=== PATIENT | male | born 1995 | race Caucasian/White ===

== ENCOUNTER 2018-06-01 10:26 | Emergency (ER) | payer OTHER, MEDICAID, SELFPAY ==
[2018-06-01 10:28] VITALS: BP 115/71; PULSE 93; RESP 17; TEMP 37.2; O2SAT 99; BMI 21.3
--- NOTE | 2018-06-01 10:44 | ED.VISSUMM ---
- ER Visit Summary Date of Service: 06/01/18 Chief Complaint: Right hand laceration History of Present Illness: The patient is a 22 M who cut his right hand on May 30 while working on a car. He presents 48 hours later. 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 He is not sure of his last tetanus update. He is right-hand dominant. He has had no weakness in the right hand. Physical Examination: Vital signs are unremarkable. Physical exam is significant for right upper extremity which reveals a 2 similar superficial laceration of the posterior right hand, over the mid fifth MCP joint. There is no sign of cellulitis or infection. There is no bleeding. He has full range of motion distally with normal strength and sensation. Test Results: [] Emergency Department Course and Treatment: I discussed with the patient that this far out from the injury it is much more likely to get infected if we close it. Will be cleansed and dressed. He will be given Keflex and tetanus update will be provided. Treatment Plan: [] Disposition: Discharge Impression: Right hand laceration, old-not sutured This note was generated with [employer] dictation software. It may contain incorrect words, spelling, and punctuation that were not noted in review of the chart prior to signing ED Disposition - Plan for ED Patient: Chief Complaint: Laceration Referrals: Care Physician,No Primary [Primary Care Provider] -
--- NOTE | 2018-06-01 10:45 | ED.DEP ---
ED Disposition - Plan for ED Patient: Disposition: Home or Assisted Living Chief Complaint: Laceration Instructions: ED Laceration Old Not Sutr Prescriptions: Cephalexin [Keflex] 500 mg PO Q6 #40 capsule Referrals: Hyacinth Cano MD [STAFF PHYSICIAN] - As Needed
[2018-06-01] MEDS: Cephalexin 250 MG Capsule 500 MG PO (11:19)
[2018-06-01] MEDS: Diphth,Pertuss(Acell),Tet Vac 0.5 ML Vial IM (11:19)
== END 2018-06-01 11:30 | disposition home or self-care (01) ==
PROVIDERS: Emergency Provider Emergency Medicine
DX: S61.411D Laceration without foreign body of right hand, subsequent encounter (principal); W45.8XXD Other foreign body or object entering through skin, subsequent encounter; Z72.0 Tobacco use
CPT/HCPCS: 90471; 90715; 99283

== ENCOUNTER 2019-01-19 10:37 | Emergency (ER) | payer OTHER, SELFPAY ==
[2019-01-19 10:38] VITALS: BP 146/74; PULSE 107; RESP 16; TEMP 37.4; O2SAT 99; BMI 21.8
--- NOTE | 2019-01-19 10:45 | EKG12_ITS ---
Test Reason : CP Blood Pressure : / mmHG Vent. Rate : 080 BPM Atrial Rate : 080 BPM P-R Int : 128 ms QRS Dur : 082 ms QT Int : 340 ms P-R-T Axes : 050 046 041 degrees QTc Int : 392 ms Normal sinus rhythm Normal ECG Confirmed by TERESA SALEH, ORALIA ([id number]), multimedia editor MONO QUINN ([id number] on 01/21/2019 1:34:53 PM Referred By: AJ Confirmed By:ORALIA MOORE MD
[2019-01-19 10:58] VITALS: O2SAT 96
[2019-01-19 11:03] VITALS: BP 114/79; PULSE 79; RESP 17; O2SAT 98
--- NOTE | 2019-01-19 11:34 | RAD_ITS ---
STUDY: X-RAY CHEST REASON FOR EXAM: Male, 23 years old. Anterior right-sided chest pain and chest tightness. TECHNIQUE: PA and lateral views of the chest. COMPARISON: None. FINDINGS: The lungs are clear and expanded. Scattered calcified granulomas. There is no demonstrated pleural abnormality. Normal size heart. Normal mediastinum and mehrdad. Normal visualized pulmonary arteries. Normal visualized aortic arch and descending thoracic aorta. Normal visualized thoracic spine. Normal visualized ribs, clavicles, and shoulders. There is no demonstrated abnormality of the visualized soft tissue structures of the upper abdomen. RAD/Chest PA and Lateral IMPRESSION: Normal x-ray examination of the chest. Scattered calcified granulomas. Electronically Signed: Jey Redd MD at 12:35 EST , Service support ,
--- NOTE | 2019-01-19 11:37 | ED.DCSUM_ITS ---
- ER Visit Summary Date of Service: 01/19/19 Chief Complaint: Chest pain, palpitations and shortness of breath History of Present Illness: The patient is a 23 M who presents for 2 weeks of intermittent chest pain, shortness of breath and palpitations. Patient states he has a sensation of his chest being tense and burning, with sensation of his heart racing at times. He feels like his breathing is shallow. Episodes are intermittent, and the last one was last night and then 1 prior to coming in today. Symptoms are worse when patient is laying down trying to go to sleep. He will start feeling the chest burning and shallow breathing, and then becomes restless. Patient denies any fever, acute cough, abdominal pain, nausea or vomiting, numbness or tingling in the arms or legs, or any other complaints. Patient is a smoker. He denies any use of stimulants such as energy drinks or energy pills, with the exception of drinking coffee. He denies any drug use. Physical Examination: Vital signs: afebrile, hemodynamically stable, no hypoxia on room air General: well nourished, well developed, in no distress Skin: warm, dry, no rash, no pallor HEENT: normocephalic and atraumatic; PERRL, EOMI, moist mucous membranes Cardiovascular: regular rate and rhythm without murmurs, no peripheral edema, 2+ pulses all distal extremities, no chest wall tenderness, no rash Respiratory: No increased work of breathing, lungs are clear to auscultation bilaterally, no rales, rhonchi or wheezing Abdominal: Abdomen is soft, nontender with normoactive bowel sounds, no guarding or rebound, no masses MSK: Moves all extremities, no deformities, normal strength Neuro: Awake and alert, oriented ?4. No facial droop, sensation and motor function intact and symmetric Test Results: Clinical Impression(s) from Imaging Studies Chest X-Ray 01/19/19 11:34 IMPRESSION: Normal x-ray examination of the chest. Scattered calcified granulomas. Electronically Signed: Jey Redd MD at 12:35 EST , Service support , Medications Given Discontinued Medications Naproxen (Naprosyn) 500 mg PO X1 ONE Stop: 01/19/19 12:59 Last Admin: 01/19/19 13:13 Dose: 500 mg Emergency Department Course and Treatment: Patient presents with intermittent episodes for the last 2 weeks of a chest burning and tenseness, sensation of shallow breathing, and palpitations. Patient on telemetry shows no episodes of tachycardia or PVCs. Patient has no findings on EKG that are concerning for a p roarrhythmic state. Chest x-ray showed no signs of pneumonia, pneumothorax or any other acute pathology. Patient was resting very comfortably and is very well-appearing with no findings on physical exam that are concerning for an acute pathology that would require further workup or intervention. Patient is young and healthy, and his description of symptoms do not seem consistent with pericarditis, myocarditis, acute coronary syndrome, or other acute pathology. Discussed with patient that if he continues to have the sensation of palpitations he may need to wear a Holter monitor. He is to follow-up with primary care for reevaluation. Patient was given a prescription of naproxen for any further chest discomfort. Patient discharged home. Treatment Plan: [] Disposition: [] Impression: Nonspecific chest pain, occasional palpitations This note was generated with [employer] dictation software. It may contain incorrect words, spelling, and punctuation that were not noted in review of the chart prior to signing ED Disposition - Plan for ED Patient: Disposition: Home or Assisted Living Instructions: ED Chest Pain Atypical Unkn Cause, ED Palpitations Prescriptions: RX: Naproxen [Naprosyn] 500 mg PO BID PRN PRN #20 tab PRN Reason: Pain Referrals: Tatyana Sinha MD [Primary Care Provider] - As soon as possible Additional Instructions: Please follow-up with your doctor as soon as possible for another evaluation. Use the naproxen as needed for chest discomfort. If you have any worsening of your condition or any new concerning symptoms, please return immediately to the emergency department for another evaluation.
[2019-01-19] MEDS: Naproxen 500 MG Tablet PO (13:13)
[2019-01-19 13:15] VITALS: BP 114/79; PULSE 65; RESP 16; TEMP 36.7; O2SAT 100
== END 2019-01-19 13:16 | disposition home or self-care (01) ==
PROVIDERS: Emergency Provider Emergency Medicine; Family Provider Pediatrics; PCP Pediatrics
DX: R07.9 Chest pain, unspecified (principal); R00.2 Palpitations; F17.200 Nicotine dependence, unspecified, uncomplicated
CPT/HCPCS: 71046; 93005; 99283

== ENCOUNTER 2019-04-22 17:45 | Emergency (ER) | payer OTHER, SELFPAY ==
[2019-04-22 17:47] VITALS: BP 131/70; PULSE 124; RESP 16; TEMP 36.7; O2SAT 97; BMI 21.7
--- NOTE | 2019-04-22 17:56 | ED.VISSUMM ---
- ER Visit Summary Date of Service: 04/22/19 Chief Complaint: Upper back pain for 2 weeks History of Present Illness: The patient is a 23 M who states he has upper back pain for 2 weeks. He denies any injury. The pain is between his shoulder blades. It is worse with movement. He has taken nothing for it. He left work last night because of the pain. He does have a history of scoliosis. Physical Examination: Vital signs are reviewed. Heart is regular rate and rhythm. Lungs are clear. Abdomen soft. He has diffuse tenderness in the thoracic area between the scapula. His shoulders are normal bilaterally. His neurologic exam is normal Test Results: [] Emergency Department Course and Treatment: Patient will be treated with naproxen and Flexeril. He has no injury and no step-offs. I do not feel any imaging is necessary. Treatment Plan: [] Disposition: Discharge Impression: Thoracic back pain This note was generated with [employer] dictation software. It may contain incorrect words, spelling, and punctuation that were not noted in review of the chart prior to signing ED Disposition - Plan for ED Patient: Referrals: Tatyana Sinha MD [Primary Care Provider] -
--- NOTE | 2019-04-22 17:57 | ED.DEP ---
ED Disposition - Plan for ED Patient: Disposition: Home or Assisted Living Instructions: ED Neck Back Pain General Prescriptions: Naproxen [Naprosyn] 500 mg PO BID PRN #20 tab Cyclobenzaprine [Flexeril] 10 mg PO TID PRN #20 tab PRN Reason: Muscle Spasm Referrals: Tatyana Sinha MD [Primary Care Provider] -
== END 2019-04-22 18:20 | disposition home or self-care (01) ==
LOC: ED 18:15
PROVIDERS: Emergency Provider Emergency Medicine
DX: M54.6 Pain in thoracic spine (principal); M41.9 Scoliosis, unspecified; Z72.0 Tobacco use
CPT/HCPCS: 99282

== ENCOUNTER 2019-05-13 09:59 | Emergency (ER) | payer OTHER, SELFPAY ==
[2019-05-13 10:01] VITALS: BP 135/95; PULSE 110; RESP 18; TEMP 36.6; O2SAT 99; BMI 21.4
[2019-05-13] MEDS: Ibuprofen 600 MG Tablet PO (10:19)
--- NOTE | 2019-05-13 10:22 | RAD_ITS ---
STUDY: X-RAY CHEST REASON FOR EXAM: Male, 23 years old. Cough. Tachycardia. TECHNIQUE: PA and lateral views of the chest. COMPARISON: Comparison is made with prior study dated January 19, 2019. FINDINGS: The lungs are clear and expanded. Scattered calcified granulomas. There is no demonstrated pleural abnormality. Normal size heart. Normal mediastinum and mehrdad. Normal visualized pulmonary arteries. Normal visualized aortic arch and descending thoracic aorta. Normal visualized thoracic spine. Normal visualized ribs, clavicles, and shoulders. There is no demonstrated abnormality of the visualized soft tissue structures of the upper abdomen. RAD/Chest PA and Lateral IMPRESSION: Normal x-ray examination of the chest. Electronically Signed: Jey Redd, at 10:39 EDT , Service support ,
--- NOTE | 2019-05-13 10:22 | RAD_ITS ---
STUDY: X-RAY - RIGHT FOOT CLINICAL: Male, 23 years old. Pain following injury. TECHNIQUE: 3 view(s) of the foot. COMPARISON: None. FINDINGS: Normal talus, calcaneus, and tarsal bones. Normal visualized subtalar, talonavicular, calcaneocuboid, tarsal and tarsometatarsal articulations. Normal metatarsi. Normal metatarsophalangeal joint of the great toe. There is a bipartite tibial sesamoid. Normal interphalangeal joint of the great toe. Normal phalanges of the great toe. Normal second through fifth metatarsophalangeal joints. Normal interphalangeal joints and phalanges of the lesser toes. Dorsal soft tissue swelling. RAD/Foot min 3 Views IMPRESSION: Dorsal soft tissue swelling. Electronically Signed: Jey Redd, at 10:40 EDT , Service support ,
--- NOTE | 2019-05-13 10:23 | ED.VISSUMM ---
- ER Visit Summary Date of Service: 05/13/19 Chief Complaint: Foot pain History of Present Illness: The patient is a 23 M with right foot pain. The patient dropped steel on his foot yesterday. He has had pain to his dorsal foot since then. He hit it 2 other times since the injury and the pain is worse. No other injuries or complaints. Physical Examination: Skin is intact. He has some dorsal edema and ecchymosis to his right foot. The area is tender to palpation. Neurovascular intact distally. Ankle and the remainder of his exam is unremarkable. Test Results: X-rays pending Emergency Department Course and Treatment: Patient treated with Motrin and an ice pack while awaiting results. X-rays were negative for fracture. He had soft tissue swelling. Please note that a chest x-ray was performed in error. This was ordered by another physician on the wrong patient. Given a work note. Rest, ice, elevate. Anti-inflammatories for pain. Follow-up with primary care. Treatment Plan: As above Disposition: Discharge Impression: 1. Right foot contusion This note was generated with [employer] dictation software. It may contain incorrect words, spelling, and punctuation that were not noted in review of the chart prior to signing ED Disposition - Plan for ED Patient: Referrals: Care Physician,No Primary [Primary Care Provider] -
--- NOTE | 2019-05-13 11:39 | ED.DEP ---
ED Disposition - Plan for ED Patient: Instructions: ED Sprain Foot Prescriptions: Ibuprofen [Motrin] 800 mg PO TID PRN PRN #20 tab PRN Reason: Pain Referrals: Frances Chairez [NON-STAFF] -
== END 2019-05-13 12:05 | disposition home or self-care (01) ==
LOC: ED 10:53
PROVIDERS: Emergency Provider Emergency Medicine
DX: S90.31XA Contusion of right foot, initial encounter (principal); W31.89XA Contact with other specified machinery, initial encounter; Y93.89 Activity, other specified; Y92.9 Unspecified place or not applicable; Y99.9 Unspecified external cause status; Z72.0 Tobacco use
CPT/HCPCS: 71046; 73630; 99281; 99282

== ENCOUNTER 2023-10-18 10:45 | Emergency (ER) | payer SELFPAY ==
[2023-10-18 10:46] VITALS: BP 126/77; PULSE 132; RESP 16; TEMP 36.7; O2SAT 99; BMI 20.4
--- NOTE | 2023-10-18 11:04 | RAD_ITS ---
EXAM: XR LUMBOSACRAL SPINE, 2 OR 3 VIEWS CLINICAL INDICATION: low back pain TECHNIQUE: Frontal and lateral views of the lumbar spine and sacrum. COMPARISON: No relevant prior studies available. FINDINGS: VERTEBRAE: Normal. Preserved vertebral body height. No fracture. No spondylolisthesis. Preservation of the normal lumbar lordosis. DISC SPACES: No acute findings. Disc spaces are maintained. RAD/Lumbar Spine 2 or 3 Views IMPRESSION: Intact lumbar spine. Electronically Signed: Allan Chavez MD at 11:56 EST ,
--- NOTE | 2023-10-18 11:05 | EDS_ITS ---
HPI History of Present Illness Chief Complaint: Back Detail of Chief Complaint: Low back pain Informant: patient and spouse/S.O. Onset/Context/Timing Onset: Today and Yesterday Timing: Continuous Quality: Sharp Location: Lumbar Current Severity: Moderate Maximum Severity: Severe Worsened by: improves with Movement Relieved by: Remaining Still Associated Symptoms Associated Symptoms: Radiation to Right Leg and Radiation to Left Leg; Negative for Numbness, Abdominal Pain, Dysuria, Unable to Ambulate, Unable to Transfer, Urinary Retention, Urinary Incontinence, Constipation or Fecal Incontinence Narrative Narrative: 28-year-old male history of scoliosis. No prior back surgeries. Has had low back pain since yesterday. Denies any fall injury or trauma that he is aware of. No recent heavy lifting. Says it radiates to both legs but he denies weakness or numbness. No bowel or bladder incontinence. He denies any type of IV drug abuse. He said he hates needles and IVs to begin with. States he also has developed nausea and vomiting. Prior similar symptoms: Yes Recent Illness/Hospitalization: No PFSH PFSH Home Medications ibuprofen 800 mg tablet 800 mg PO TID PRN PRN Pain #20 tabs 05/13/19 [Rx Last Taken Unknown] Allergy/AdvReac Type Severity Reaction Status Date / Time acetaminophen [From Percocet] Allergy Mild Vomiting Verified 10/18/23 10:48 oxycodone [From Percocet] Allergy Mild Vomiting Verified 10/18/23 10:48 bee venom protein (honey bee) Allergy Anaphylaxis Verified 05/13/19 10:00 Social History Smoking Status: Current every day smoker ROS ROS ED ROS Narrative Low back pain. Nausea vomiting. Review of Systems ROS Unobtainable: Denies due to encephalopathy Constitutional Constitutional ED: Denies chills Eyes Eyes: Denies blurry vision ENT ENT ED: Denies ear pain Cardiovascular Cardiovascular: Denies chest pain Respiratory/Chest Respiratory/Chest: Denies dyspnea or dyspnea on exertion Gastrointestinal Gastrointestinal: Reports nausea and vomiting; Denies abdominal pain, diarrhea or melena Genitourinary Genitourinary ED: Denies dysuria or hematuria Musculoskeletal Musculoskeletal: Reports back pain; Denies arthralgias Integumentary Denies abscess Neurologic Neurologic: Denies headache(s) Psychiatric Psychiatric: Denies anxiety Endocrine Endocrinology: Denies cold intolerance Hematologic/Lymphatic Hematologic/Lymphatic: Denies easy bleeding or easy bruising Allergic/Immunologic Allergic/Immunologic ED: Denies mouth swelling, tongue swelling or urticaria EXAM Physical Exam Narrative Exam Narrative: 28-year-old male vital signs stable afebrile. He does not look septic toxic. Lying in a position in the bed. at bedside. HEENT exam unremarkable. Neck nontender no meningismus. No lymphadenopathy. Lungs clear to auscultation bilaterally. Heart tachycardic no murmur. Chest wall and ribs nontender. Abdomen soft nontender. No peritoneal signs. Moving all 4 extremities. 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 Dorsi plantarflexion intact. Negative straight leg raise bilaterally. Normal motor strength. Normal sensation. No cauda equina. No saddle anesthesia. Back really no reproducible back pain. He complains of pain to his lower lumbar spine. There is no redness or warmth. There is no signs of trauma. No rashes. No bruising. No bony deformities. Neurologically is awake and alert with no focal motor or any sensory deficits. Const Vital Signs: 10/18/23 10:46 Temperature 98.1 F Temperature Source Temporal Pulse Rate 132 H Respiratory Rate 16 Blood Pressure 126/77 H Blood Pressure Mean 93 Pulse Ox 99 Oxygen Delivery Method Room Air Positive well nourished and well developed; Negative for obese, cachectic, contractures or unkempt General Appearance ED: well developed and NAD; Negative for unkempt, cachectic, contractures or pallor Nutritional Appearance: Negative for cachectic or obese HEENT Reports moist mucous membranes; Denies dry mucous membranes Negative for trauma or tenderness Mouth ED: No dry mucous membranes Mouth: No dry mucous membranes Eyes PERRL and EOMs intact bilaterally General Eye ED: Negative for pale conjunctiva or scleral icterus Neck no lymphadenopathy, supple and no JVD General: Negative for tenderness Resp normal respiratory effort and clear to auscultation bilaterally Effort and Inspection: Negative for pain with movement Auscultation: Negative for rales, rhonchi or wheezes Cardio regular rhythm, S1 normal heart sound, S2 normal heart sound and no murmurs; Negative for regular rate Rate: tachycardic GI normal to inspection, nondistended, normoactive bowel sounds, soft to palpation, non-tender, non-distended and no masses Inspection: Negative for abdominal distention Auscultation: Negative for hyperactive bowel sounds Palpation: Negative for tender, guarding, hepatomegaly, splenomegaly, mass, pulsatile mass or rebound tenderness present Back/Spine normal to inspection and no thoracic nor lumbar tenderness General Back: Negative for CVA tenderness Cervical Spine: Negative for cervical spine tenderness Thoracic Spine / Upper Back: Negative for paraspinal muscle tenderness Lumbar Spine / Lower Back: straight leg raise negative bilaterally; Negative for ROM limited Extremity normal to inspection and no clubbing, cyanosis or edema General Extremety ED: Negative for edema or tenderness General Extremity: Negative for edema Neuro oriented x3 and no sensory deficits noted Sensorium / Orientation: Negative for alert, confused, lethargic or stuporous Sensory Exam: No other Motor Exam: strength 5/5 throughout Psych mental status grossly normal Appearance: Negative for unkempt Attitude: No agitated and No other Mood & Affect: Negative for depressed, sad or tearful Skin no rashes or lesions noted and no wounds General Skin Exam: Negative for jaundice or pallor Lesions: No lesion noted Rashes: No rashes noted Trauma: Negative for abrasion, puncture or other Wounds: Negative for wounds noted MDM MDM MDM Narrative Medical decision making narrative: 28-year-old male vital signs stable afebrile. Complaining of atraumatic low back pain. History of scoliosis. No prior back surgery. Exam benign. No cauda equina. No saddle anesthesia. Negative straight leg raise. I was then given a shot of IM Toradol but he does not want any injections he hates needles and IVs. Be given Motrin for pain. I am obtaining x-rays more due to the patient's desire then I explained to him unlikely that this can show any significant pathology. He does not need an emergent MRI if symptoms continue we may for further evaluation for possible disc disease. He has no risk factors for an epidural abscess and denies any IV drug use. Patient doing well at 11:30 AM. No change. Neurovascular intact. I did recheck his temperature orally it was 98 9. He was given Motrin for pain. We went over his x-rays which were negative. Outpatient follow-up as needed. Tylenol Motrin for pain. Off work today and Friday as needed. History & Record Review Discussion w/independent historian: Patient Additional record(s) reviewed:: Prior inpatient record, Prior outpatient record, Prior ED visit, Prior labs and No prior records Radiography Diagnostic Testing: Lumbar spine x-rays, 2 views, interpreted by myself shows no acute abnormality. Normal vertebrae. No compression. No fracture. Normal disc space. Discharge Plan Triage Chief Complaint: Back ED Provider: Nasir Floyd Dx/Rx/DC Orders Clinical Impression: Back pain Instructions: ED Back and Neck Pain, General Prescriptions: No Action ibuprofen 800 MG tablet 800 mg PO TID PRN PRN (Reason: Pain) Qty: 20 0RF Primary Care Provider: Care Physician,No Primary Referrals: Tyron Steward MD [Non-Staff] - As soon as possible Care Physician,No Primary [Primary Care Provider] - Activity Restrictions/Additional Instructions: Motrin for pain and inflammation. Tylenol for pain. I would use Motrin 6 to 800 mg 3 times a day. Tylenol in between. Follow-up with a local doctor if not improving. If not improving you may need an MRI. Plain x-rays were normal. Return if worsening pain, bowel, bladder incontinence or significant weakness. Off work today October 18 and October 20 as needed. Disposition Disposition: Home, Self Care
[2023-10-18] MEDS: Ibuprofen 400 MG Tablet 800 MG PO (11:15)
== END 2023-10-18 11:50 | disposition home or self-care (01) ==
PROVIDERS: Emergency Provider Emergency Medicine; Visit Provider Emergency Medicine
DX: M54.50 Low back pain, unspecified (principal); F17.200 Nicotine dependence, unspecified, uncomplicated
CPT/HCPCS: 72100; 99282

== ENCOUNTER 2024-04-14 21:33 | Emergency (ER) | payer SELFPAY ==
[2024-04-14 21:34] VITALS: BP 149/93; PULSE 109; RESP 19; TEMP 36.3; O2SAT 99; BMI 19.8
--- NOTE | 2024-04-14 22:36 | ED.VIS.DENTA ---
HPI History of Present Illness Chief Complaint: Dental Informant: patient Onset/Context/Timing Onset: Weeks Context: Gradual Onset Timing: Continuous Current Severity: Mild Maximum Severity: Moderate Relieved by: NSAIDs Associated Symptoms Assocated Symptom - Dental: cold sensitivity; Negative for fever, jaw swelling or face swelling Narrative Narrative: 28-year-old male no seen past medical history has had diffuse dental pain currently is primarily right upper and lower posterior jaw for last several weeks. Denies any fall injury or trauma. No fever. No trouble swallowing or breathing. He has been using ibuprofen for pain. Currently is uninsured. He does not have a dentist. Prior similar symptoms: Yes Recent Illness/Hospitalization: No PFSH PFSH Medical History Scoliosis Home Medications ?Medication ?Instructions ?Recorded ?Last Taken ?Type ibuprofen 800 mg tablet 800 mg PO TID PRN PRN Pain #20 tabs 05/13/19 04/14/24 Rx Allergy/AdvReac Type Severity Reaction Status Date / Time acetaminophen (From Percocet) Allergy Mild Vomiting Verified 10/18/23 10:48 oxycodone (From Percocet) Allergy Mild Vomiting Verified 10/18/23 10:48 bee venom protein (honey bee) Allergy Anaphylaxis Verified 05/13/19 10:00 Social History Smoking Status: Current every day smoker tobacco type: cigarettes ROS ROS ED ROS Narrative Denies recent illness. Review of Systems ROS Unobtainable: Denies due to encephalopathy Constitutional Constitutional ED: Denies chills or fever(s) Eyes Eyes: Denies blurry vision ENT ENT ED: Denies ear pain Cardiovascular Cardiovascular: Denies chest pain or palpitations Respiratory/Chest Respiratory/Chest: Denies cough or dyspnea Gastrointestinal Gastrointestinal: Denies abdominal pain Genitourinary Genitourinary ED: Denies dysuria or hematuria Musculoskeletal Musculoskeletal: Denies arthralgias, back pain or myalgias Integumentary Denies abscess, Abrasions or rash Neurologic Neurologic: Denies headache(s) Psychiatric Psychiatric: Denies anxiety or depression Endocrine Endocrinology: Denies cold intolerance Hematologic/Lymphatic Hematologic/Lymphatic: Denies easy bleeding, easy bruising or lymphadenopathy Allergic/Immunologic Allergic/Immunologic ED: Denies mouth swelling, tongue swelling or urticaria EXAM Physical Exam Narrative Exam Narrative: [id number] male no acute distress vital signs stable afebrile. H EENT exam moist mucous membranes. No Marily's. Posterior pharynx unremarkable. No swelling. No trouble swallowing or breathing. Very poor dentition. Erosion to the gumline on the posterior molars. Gingival inflammation. No obvious abscess. No trismus. Multiple dental caries. Neck nontender no lymphadenopathy. Lungs clear. Heart regular rhythm. No murmur. Abdomen soft. Otherwise exam unremarkable. Const Vital Signs: 04/14/24 21:34 Temperature 97.3 F L Temperature Source Temporal Pulse Rate 109 H Respiratory Rate 19 H Blood Pressure 149/93 H Blood Pressure Mean 111 Pulse Ox 99 Oxygen Delivery Method Room Air Positive well nourished and well developed; Negative for obese, cachectic, contractures or unkempt General Appearance ED: well developed and NAD; Negative for unkempt, cachectic, contractures or pallor Nutritional Appearance: Negative for cachectic or obese HEENT HEENT Narrative: Dental caries. Dental erosion. Gingivitis. Negative for trauma or tenderness Face and Sinus: sinuses nontender Mouth ED: Yes oral and palatal mucosa normal, Yes lips normal, Yes tongue normal, Yes salivary gland normal, No mouth trauma and No salivary gland abnormal Mouth: oral and palatal mucosa normal, lips normal, tongue normal, salivary gland normal, No mouth trauma and No salivary gland abnormal Teeth and Gingiva: abnormal tooth and associated gingiva, caries, gingiva abnormal, poor dentition and teeth discoloration Throat: posterior oropharynx normal Eyes PERRL and EOMs intact bilaterally General Eye ED: Negative for pale conjunctiva or scleral icterus Neck no lymphadenopathy, supple and no JVD General: normal visual inspection; Negative for anterior neck swelling, tenderness or submandibular swelling Lymph Lymphatic: no lymphadenopathy noted; Negative for lymphadenopathy Chest Wall inspection of chest normal and palpation of chest normal Chest: Negative for other Resp normal respiratory effort, no retractions and clear to auscultation bilaterally Effort and Inspection: Negative for other Cardio regular rate, regular rhythm, S1 normal heart sound, S2 normal heart sound and no murmurs Jugular Venous Distention: Negative for other Palpation: Negative for palpable S3 or palpable S4 Rate: Negative for bradycardia or tachycardic Rhythm: Negative for abnormal rhythm GI normal to inspection, nondistended, normoactive bowel sounds, non-tender, non-distended and no masses Inspection: Negative for other Palpation: soft Bladder / Kidney Exam: No other Back/Spine no CVA tenderness General Back: Negative for CVA tenderness Cervical Spine: Negative for other Extremity normal to inspection General Extremety ED: Negative for edema or other findings General Extremity: Negative for edema or other findings Neuro oriented x3, CN's II-XII intact bilaterally, moves all extremities and no focal motor deficits Sensorium / Orientation: alert, oriented to person, oriented to place and oriented to time; Negative for orientation impaired Motor Exam: strength 5/5 throughout Psych mental status grossly normal Appearance: Negative for unkempt Attitude: No agitated Mood & Affect: Negative for depressed, anxious or tearful Skin no rashes or lesions noted and no wounds General Skin Exam: Negative for pallor MDM MDM MDM Narrative Medical decision making narrative: 28-year-old male with dental [place], caries and gingivitis. No abscess. No Thiago's. Placed on Pen-Vee K 500 4 times daily for 10 days 40 no refill. Motrin Tylenol for pain. He was given dental follow-up. History & Record Review Discussion w/independent historian: Patient Discharge Plan Triage Chief Complaint: Dental ED Provider: Nasir Floyd Dx/Rx/DC Orders Clinical Impression: Gingivitis, Dental cavities, Pain, dental Instructions: Stages of Periodontal Disease, ED Dental Pain, ED Dental Cavity Prescriptions: No Action ibuprofen 800 MG tablet 800 mg PO TID PRN PRN (Reason: Pain) Qty: 20 0RF Primary Care Provider: Care Physician,No Primary Referrals: Frances Chairez [Non-Staff] - As soon as possible Care Physician,No Primary [Primary Care Provider] - Activity Restrictions/Additional Instructions: Warm salt water rinses to your mouth. Motrin and Tylenol for pain. The antibiotic penicillin 4 times a day till gone. Call and follow-up with the dental clinic either [facility] or [facility] in [place]. Print Language: Icelandic Disposition Disposition: Home, Self Care
[2024-04-14 22:48] VITALS: BP 132/91; PULSE 72; RESP 16; TEMP 36.2; O2SAT 98
[2024-04-14] MEDS: Ibuprofen 400 MG Tablet 800 MG PO (22:48)
[2024-04-14] MEDS: Penicillin Vk 250 MG Tablet 500 MG PO (22:49)
== END 2024-04-14 22:50 | disposition home or self-care (01) ==
LOC: ED 22:42
PROVIDERS: Emergency Provider Emergency Medicine; Visit Provider Emergency Medicine
DX: K02.9 Dental caries, unspecified (principal); K08.89 Other specified disorders of teeth and supporting structures; F17.210 Nicotine dependence, cigarettes, uncomplicated; K05.10 Chronic gingivitis, plaque induced
CPT/HCPCS: 99282